=== PATIENT | female | born 1980 | race Caucasian/White ===

== ENCOUNTER 2021-12-08 03:40 | Emergency (ER) | payer OTHER ==
[~2021-12-08] VITALS: Ht 160 cm; Wt 68.0 kg
--- NOTE | 2021-12-08 03:40 | NUR ---
PT BIB [facility], PREBOOK. TAKEN TO CHAIR
[2021-12-08 03:45] VITALS: BP 149/89
--- NOTE | 2021-12-08 04:11 | NUR ---
PATIENT [facility] DEPT. PATIENT EXAMINED BY DR. MONK. PATIENT MEDICALLY CLEARED AND RELEASED IN CUSTODY IN STABLE CONDITION. ORIGINAL PRE-BOOK FORM GIVEN TO OFFICER [employer]NAST[employer], #[id number].
== END 2021-12-08 04:11 ==
LOC: MED 03:40
DX: Z02.89 Encounter for other administrative examinations (principal); V89.2XXA Person injured in unspecified motor-vehicle accident, traffic, initial encounter; Y93.89 Activity, other specified; Y92.410 Unspecified street and highway as the place of occurrence of the external cause; Y99.8 Other external cause status
CPT/HCPCS: 99283